=== PATIENT | male | born 1985 ===

== ENCOUNTER 2018-03-03 05:29 | Day surgery (SDC) | payer OTHER ==
[2018-03-03] MEDS ORDERED: ULTRACET PO (11:32)
[2018-03-03] MEDS ORDERED: SURFAK240 M1 PO (11:33)
[2018-03-03] MEDS ORDERED: KEFLEX500 MG PO (11:34)
== END 2018-03-03 20:30 | disposition home or self-care (01) ==
LOC: CIR.AMB 05:29
DX: K42.0 Umbilical hernia with obstruction, without gangrene (principal)

== ENCOUNTER 2025-03-11 10:30 | Day surgery (SDC) | payer OTHER ==
[~2025-03-11 10:30] MED LIST: KEFLEX500 MG PO; SURFAK240 M1 PO; ULTRACET PO
[2025-03-11] MEDS ORDERED: fentaNYL CITRATE 50 MCG/ML AMPUL IV PUSH ONE (12:45)
[2025-03-11] MEDS ORDERED: DIPHENHYDRAMINE HCL 50 MG/ML VIAL 1ML IV ONE (12:45)
[2025-03-11] MEDS ORDERED: MIDAZOLAM HCL 2 MG/2 ML VIAL IV ONE (12:45)
== END 2025-03-11 14:25 | disposition home or self-care (01) ==
LOC: AMB-ENDOS 10:30
PROVIDERS: ATTEND Internal Medicine
DX: D13.2 Benign neoplasm of duodenum (principal); K31.7 Polyp of stomach and duodenum; K44.9 Diaphragmatic hernia without obstruction or gangrene; K21.9 Gastro-esophageal reflux disease without esophagitis